=== PATIENT | female | born 1990 | race African-American/Black ===

== ENCOUNTER 2024-04-27 21:00 | Emergency (ER) | payer MEDICAID ==
[~2024-04-27] VITALS: Ht 167.6 cm; Wt 105.0 kg
[2024-04-27 21:29] VITALS: BP 130/91; PULSE 71; RESP 18; TEMP 98.5; O2SAT 100
[2024-04-27] MEDS ORDERED: DIPH28.33 TP (23:15)
[2024-04-27] MEDS ORDERED: DIPH25TA62 MT (23:15)
== END 2024-04-28 00:02 | disposition home or self-care (01) ==
LOC: ER 21:00
DX: R21 Rash and other nonspecific skin eruption (principal)
CPT/HCPCS: 99281; 99282